=== PATIENT | female | born 1970 | race Caucasian/White ===

== ENCOUNTER → 2016-06-01 | Outpatient (CLI) | payer MEDICAID ==
[2016-02-05 11:57] VITALS: BP 120/60
--- NOTE | 2016-06-01 17:00 | RAD ---
Indication: Pain. Exam: Soft tissue neck. Technique: AP and lateral views were obtained of the soft tissues of the neck. Findings: The prevertebral soft tissues are normal. There is mild enlargement of the lingular tonsil s. The epiglottis and subglottic airway are unremarkable. The bones are intact. No foreign bodies ar e seen. Impression: Mild enlargement of the lingular tonsils otherwise, unremarkable. Reported By:
== END | disposition home or self-care (01) | DRG 552 ==
LOC: RAD 07:52
PROVIDERS: ATTEND Family Medicine
DX: M54.2 Cervicalgia (principal); J35.1 Hypertrophy of tonsils
CPT/HCPCS: 70360

== ENCOUNTER → 2016-12-13 | Outpatient (CLI) | payer MEDICAID ==
[2016-11-16 15:33] VITALS: BP 141/59
[2016-12-13 08:31] LABS: BASOPHILS % (AUTO) 0.3 % (0.2-1.0); EOSINOPHILS % (AUTO) 0.3 % (0.9-2.9); HEMATOCRIT 40.7 % (36.0-47.0); HEMOGLOBIN 14.4 g/dL (12.0-16.0); LYMPHOCYTES # (AUTO) 1.7 X10^3/uL (1.3-2.9); LYMPHOCYTES % (AUTO) 20.3 % (21.0-51.0); MEAN CORPUSCULAR HEMOGLOBIN 33.6 pg (27.0-34.0); MEAN CORPUSCULAR HGB CONC 35.4 g/dL (33.0-35.0); MEAN CORPUSCULAR VOLUME 94.9 fL (80.0-100.0); MEAN PLATELET VOLUME 7.8 fL (7.4-11.0); MONOCYTES # (AUTO) 0.6 x10^3/uL (0.3-0.8); MONOCYTES % (AUTO) 7.2 % (0.0-13.0); NEUTROPHILS % (AUTO) 71.9 % (42.0-75.0); PLATELET COUNT 296 X10^3/uL (150.0-450.0); RED BLOOD COUNT 4.28 X10^6/uL (3.5-5.4); RED CELL DISTRIBUTION WIDTH 13.4 % (11.6-16.5); WHITE BLOOD COUNT 8.4 X10^3/uL (3.6-10.0)
[2016-12-13 08:39] LABS: ALANINE AMINOTRANSFERASE 51 Units/L (12-78); ALBUMIN 3.6 g/dL (3.4-5.0); ALKALINE PHOSPHATASE 106 Units/L (46-116); ASPARTATE AMINO TRANSFERASE 41 Units/L (15-37); BLOOD UREA NITROGEN 12 mg/dL (7-18); CALCIUM 9.1 mg/dL (8.5-10.1); CHLORIDE 103 mmol/L (98-107); CHOLESTEROL 206 mg/dL (0-200); CREATININE 1.03 mg/dL (0.55-1.02); HDL CHOLESTEROL 69 mg/dL (40-60); SODIUM 137 mmol/L (136-145); TOTAL PROTEIN 8.1 g/dL (6.4-8.2); TRIGLYCERIDES 65 mg/dL (0-150); eGFR BLACK RACES > 60 (>60); eGFR NON BLACK RACES > 60 (>60)
[2016-12-15 06:44] LABS: DEHYDROEPIANDROSTERONE SULFATE 184 ug/dL (32-240)
== END ==
LOC: LAB 08:06
PROVIDERS: ATTEND Nurse Practitioner Family
DX: R06.02 Shortness of breath (principal); I10 Essential (primary) hypertension; E78.4 Other hyperlipidemia; R23.2 Flushing
CPT/HCPCS: 36415; 80053; 80061; 82627; 82671; 84144; 84270; 84402; 84403; 85025

== ENCOUNTER → 2016-12-27 | Outpatient (CLI) | payer MEDICAID ==
[2016-11-16 15:33] VITALS: BP 141/59
== END ==
LOC: RT 14:18
PROVIDERS: ATTEND Psychiatry & Neurology Neurology
DX: M54.12 Radiculopathy, cervical region (principal)
CPT/HCPCS: 95911

== ENCOUNTER 2017-05-23 11:26 | Emergency (ER) | payer MEDICAID ==
[2017-05-23 11:30] VITALS: BP 118/56; BMI 30.2
== END 2017-05-23 11:47 | disposition left against medical advice (07) ==
LOC: ER 11:45
DX: M25.562 Pain in left knee (principal)
CPT/HCPCS: 99281

== ENCOUNTER 2017-10-17 16:26 | Inpatient (IN) ==
[2017-10-17] MEDS ORDERED: TUSSIONEX PENNKINETIC SUSP PO PRN (17:10)
[2017-10-17] MEDS ORDERED: ULTRAM PO PRN (17:13)
[2017-10-17] MEDS ORDERED: MOTRIN TAB 600 MG PO PRN (17:13)
[2017-10-17 17:46] LABS: BASOPHILS # (AUTO) 0.1 X10^3/uL (0.0-0.1); BASOPHILS % (AUTO) 0.5 % (0.2-1.0); EOSINOPHILS # (AUTO) 0.1 x10^3/uL (0.0-0.2); EOSINOPHILS % (AUTO) 0.7 % (0.9-2.9); LYMPHOCYTES # (AUTO) 1.7 X10^3/uL (1.3-2.9); LYMPHOCYTES % (AUTO) 16.9 % (21.0-51.0); MEAN CORPUSCULAR HEMOGLOBIN 34.5 pg (27.0-34.0); MEAN CORPUSCULAR HGB CONC 36.1 g/dL (33.0-35.0); MEAN CORPUSCULAR VOLUME 95.7 fL (80.0-100.0); MEAN PLATELET VOLUME 8.3 fL (7.4-11.0); MONOCYTES # (AUTO) 0.9 x10^3/uL (0.3-0.8); MONOCYTES % (AUTO) 9.2 % (0.0-13.0); NEUTROPHILS # (AUTO) 7.3 x10^3/uL (2.2-4.8); NEUTROPHILS % (AUTO) 72.7 % (42.0-75.0); PLATELET COUNT 330 X10^3/uL (150.0-450.0); RED BLOOD COUNT 3.76 X10^6/uL (3.5-5.4)
[2017-10-17 17:47] VITALS: BMI 30.2
[2017-10-17 17:58] LABS: ALANINE AMINOTRANSFERASE 23 Units/L (12-78); ALBUMIN 3.4 g/dL (3.4-5.0); ALKALINE PHOSPHATASE 92 Units/L (46-116); ASPARTATE AMINO TRANSFERASE 18 Units/L (15-37); BLOOD UREA NITROGEN 6 mg/dL (7-18); CARBON DIOXIDE 26.2 mmol/L (21-32); CHLORIDE 101 mmol/L (98-107); COR NA(FOR HYPERGLY) 136 mmol/L (136-145); CREATININE 0.88 mg/dL (0.55-1.02); SODIUM 136 mmol/L (136-145); TOTAL PROTEIN 8.1 g/dL (6.4-8.2); eGFR NON BLACK RACES > 60 (>60)
--- NOTE | 2017-10-17 18:02 | DR.H&P ---
H&P - History & Physical for Day of: H&P Date: 10/17/17 - Chief Complaint Chief Complaint: SOB, CCC, WHEEZING - History of Present Illness History of Present Illness: 47 WF DIRECT ADMIT FROM DR GUTIÉRREZ OFFICE AFTER PRESENTING WITH CO SEVERE SOB, WHEEZING AND CHEST CONGESTION, LOW GRADE FEVERS AND N/V. PT STATES SHE HAS TAKEN NEB TREATMENTS WITHOUT IMPROVEMENT. DIFFUSE WHEEZES ON EXAM AND O2 SAT LOW 90'S IN OFFICE. PT HAS PMH OF COPD, OA, KURT, AND BIPOLAR DISORDER. PT ADMITTED FOR TREATMENT OF ACUTE RESP ILLNESS. - Past Medical History Past Medical History: Anxiety, Arthritis, COPD, Dyslipidemia, GERD, Hyperthyroidism - Past Surgical History Surgical History: Hysterectomy - Family History Family Medical History: Cancer, NM, Hypertension - Social History Does patient currently use any type of tobacco product: Yes Have you used tobacco products in the last 12 months: Yes Type of Tobacco Use: Cigarettes How many years tobacco product used: 38 Does any household member use tobacco: Yes Alcohol Use: None Drug Use: None - Medications Home Medications: aspirin Allergy (Verified 11/16/16 16:19) divalproex sodium [From Depakote] Allergy (Verified 11/16/16 16:19) fluoxetine [From Prozac] Allergy (Verified 11/16/16 16:19) ketorolac [From Toradol] Allergy (Verified 11/16/16 16:19) penicillin G Allergy (Verified 11/16/16 16:19) sumatriptan [From Imitrex] Allergy (Verified 11/16/16 16:19) ziprasidone [From Geodon] Allergy (Verified 11/16/16 16:19) CONTINUE taking the following medications albuterol sulfate [Proventil HFA] 1 puff INHALATION Q4-6H PRN 10/17/17 [History] alprazolam [Xanax] 2 mg PO QID 10/17/17 [History] budesonide-formoterol [Symbicort] 160 mg INHALATION BID 10/17/17 [History] carisoprodol 350 mg PO QID PRN 10/17/17 [History] estradiol 2 mg PO QDAY 10/17/17 [History] hydrocodone-acetaminophen [Bartelso] 1 tab PO Q6H PRN 10/17/17 [History] linaclotide [Linzess] 145 mcg PO QDAY 10/17/17 [History] lisinopril 5 mg PO QDAY 10/17/17 [History] omeprazole 20 mg PO QDAY 10/17/17 [History] quetiapine 300 mg PO BID 10/17/17 [History] ranitidine HCl [Zantac] 150 mg PO QDAY 10/17/17 [History] ropinirole 2 mg PO TID 10/17/17 [History] simvastatin 20 mg PO QHS 10/17/17 [History] - Review of Systems Constitutional: Fever, Chills, Sweats, Weakness Eyes: No Symptoms Reported ENT: No Symptoms Reported Respiratory: Cough, Shortness of Breath, SOB with Excertion, Sputum, Wheezing Cardiovascular: No Symptoms Reported Gastrointestinal: Nausea, Vomiting Genitourinary: No Symptoms Reported Musculoskeletal: No Symptoms Reported Skin: No Symptoms Reported Neurological: No Symptoms Reported - Physical Exam Vital Signs: Temperature 99.7 F Pulse Rate [Right Brachial] 110 Respiratory Rate 22 Blood Pressure [Right Arm] 160/81 Blood Pressure 118/56 O2 Sat by Pulse Oximetry 94 Oriented: Normal Ear: Normal Nose: Discharge Throat: Red, Dry Respiratory: Wheezes Throughout, RLL Diminished, LLL Diminished Cardiovascular: Tachycardia. negative: Edema : Normal Palpation: Normal Tenderness: Normal Skin: Normal Musculoskeletal: Back:Lumbar Psychiatric: Anxiety Mood Description: Anxious Affect: Anxious Speech Pattern: Clear, Appropriate - Assessment/Plan (1) SOB (shortness of breath) Status: Acute Plan: ADMIT, BLOOD AND SPUTUM CULTURES ON ADMISSION. PNEUMONIA PROTOCOL, CXR ON ADMISSION. IV ZITHROMAX, IV SOLU MEDROL, SUPPLEMENTAL O2, ABG. VERIFY HOME MEDS. RESP TOILETING, JET NEBS (2) COPD exacerbation Status: Acute (3) Pneumonia Status: Acute (4) KURT (generalized anxiety disorder) Status: Acute - Allergies Allergies/Adverse Reactions: Allergies Allergy/AdvReac Type Severity Reaction Status Date / Time aspirin Allergy Verified 11/16/16 16:19 divalproex sodium Allergy Verified 11/16/16 16:19 [From Depakote] fluoxetine [From Prozac] Allergy Verified 11/16/16 16:19 ketorolac [From Toradol] Allergy Verified 11/16/16 16:19 penicillin G Allergy Verified 11/16/16 16:19 sumatriptan [From Imitrex] Allergy Verified 11/16/16 16:19 ziprasidone [From Geodon] Allergy Verified 11/16/16 16:19
--- NOTE | 2017-10-17 18:08 | RAD ---
HISTORY: Cough and congestion, fever Study: Two-view chest Comparison: 11/09/2012 Findings: The trachea is midline. The cardiac silhouette is unremarkable. The lungs are clear. There is no acut e infiltrate, consolidation, or pleural effusion. The bony structures are grossly intact. IMPRESSION: 1. No acute cardiopulmonary process evident Reported By:
[2017-10-17] MEDS ORDERED: ZESTRIL TAB 5 MG PO SCH (18:15)
[2017-10-17] MEDS ORDERED: NS 1/2 1000 ML IV 1,000 ML IV ONE (19:10)
[2017-10-17] MEDS: ZITHROMAX INJ 500 MG VIAL 500 MG in NS 250 ML IV 250 ML IV SCH (19:13)
[2017-10-17] MEDS: XANAX PO SCH ×2 (19:13→23:00)
[2017-10-17] MEDS: ZESTRIL TAB 5 MG PO SCH (19:13)
[2017-10-17] MEDS: NS 1/2 1000 ML IV 1,000 ML IV SCH (19:13)
[2017-10-17] MEDS: SOLU-Medrol 125 MG VIAL IVP SCH ×2 (19:14→23:00)
[2017-10-17] MEDS: REQUIP PO SCH ×2 (19:15→23:00)
[2017-10-17] MEDS: NICOTINE PATCH TD SCH (19:52)
[2017-10-17] MEDS: SEROquel TAB 100 MG PO SCH (20:59)
[2017-10-17] MEDS: PULMICORT NEB TX 0.5 MG NEB SCH (21:49)
[2017-10-17] MEDS: DUONEB 0.5 MG/3 MG NEB SCH (21:49)
[2017-10-17] MEDS: ROBITUSSIN DM PO SCH (22:59)
[2017-10-17] MEDS: ZOCOR TAB 20 MG PO SCH (23:00)
[2017-10-18] MEDS: DUONEB 0.5 MG/3 MG NEB SCH ×6 (01:00→20:14)
[2017-10-18] MEDS: XANAX PO SCH ×3 (05:04→21:38)
[2017-10-18] MEDS: REQUIP PO SCH ×3 (05:04→21:36)
[2017-10-18] MEDS: SOLU-Medrol 125 MG VIAL IVP SCH ×3 (05:04→21:39)
[2017-10-18 05:09] LABS: BASOPHILS % (AUTO) 0.2 % (0.2-1.0); HEMATOCRIT 34.1 % (36.0-47.0); HEMOGLOBIN 12.2 g/dL (12.0-16.0); LYMPHOCYTES # (AUTO) 0.7 X10^3/uL (1.3-2.9); LYMPHOCYTES % (AUTO) 13.9 % (21.0-51.0); MEAN CORPUSCULAR HEMOGLOBIN 34.6 pg (27.0-34.0); MEAN CORPUSCULAR HGB CONC 35.7 g/dL (33.0-35.0); MEAN CORPUSCULAR VOLUME 96.9 fL (80.0-100.0); MEAN PLATELET VOLUME 8.5 fL (7.4-11.0); MONOCYTES # (AUTO) 0.1 x10^3/uL (0.3-0.8); MONOCYTES % (AUTO) 1.2 % (0.0-13.0); NEUTROPHILS # (AUTO) 4.1 x10^3/uL (2.2-4.8); NEUTROPHILS % (AUTO) 84.7 % (42.0-75.0); PLATELET COUNT 292 X10^3/uL (150.0-450.0); RED BLOOD COUNT 3.52 X10^6/uL (3.5-5.4); RED CELL DISTRIBUTION WIDTH 12.8 % (11.6-16.5); WHITE BLOOD COUNT 4.8 X10^3/uL (3.6-10.0)
[2017-10-18 05:25] LABS: ALANINE AMINOTRANSFERASE 23 Units/L (12-78); ALKALINE PHOSPHATASE 89 Units/L (46-116); ASPARTATE AMINO TRANSFERASE 17 Units/L (15-37); BLOOD UREA NITROGEN 7 mg/dL (7-18); CALCIUM 8.8 mg/dL (8.5-10.1); CHLORIDE 101 mmol/L (98-107); COR CA(FOR HYPOALB) 9.6 mg/dL (8.5-10.1); COR NA(FOR HYPERGLY) 137 mmol/L (136-145); CREATININE 0.86 mg/dL (0.55-1.02); SODIUM 135 mmol/L (136-145); TOTAL PROTEIN 7.7 g/dL (6.4-8.2); eGFR NON BLACK RACES > 60 (>60)
--- NOTE | 2017-10-18 06:58 | RAD ---
HISTORY: Cough, congestion, fever Study: Chest AP portable Comparison: 10/17/2017 Findings: The heart is within normal limits in size. The lc are normal. The lungs are well inflated. There llamas s been interval development since the prior examination of a right basilar infiltrate consistent with pneumonia. The remainder of the lung loera are clear. No pleural effusions are identified. The bony thorax is unremarkable. IMPRESSION: Interval development since the prior examination of a peripheral right basilar lung infiltrate most c onsistent with pneumonia. Reported By:
[2017-10-18] MEDS: ZANTAC PO SCH (08:49)
[2017-10-18] MEDS: ROBITUSSIN DM PO SCH ×4 (08:49→21:34)
[2017-10-18] MEDS: NICOTINE PATCH TD SCH (08:49)
[2017-10-18] MEDS: ZESTRIL TAB 5 MG PO SCH (08:49)
[2017-10-18] MEDS: PriLOSEC PO SCH (08:50)
[2017-10-18] MEDS: ZITHROMAX INJ 500 MG VIAL 500 MG in NS 250 ML IV 250 ML IV SCH (08:51)
[2017-10-18] MEDS: PULMICORT NEB TX 0.5 MG NEB SCH ×2 (08:53→20:14)
[2017-10-18] MEDS ORDERED: ESTRACE PO SCH (09:00)
[2017-10-18] MEDS ORDERED: PROTONIX TAB 40 MG PO SCH (09:00)
--- NOTE | 2017-10-18 09:11 | PCM.PROG ---
Progress Note - Progress Note for Day of Date of Exam: 10/18/17 - Subjective Subjective: 47 WF ADMITTED ON 10/17 WITH SOB, COPD EXACERBATION AND PNEUMONIA. PT IS CURRENTLY ON IV ATBX, IV SOLU MEDROL WITH IMPROVING INSPIRATORY WHEEZING THIS AM. LESS SOB AT REST REPORTED BY PT. CONTINUE JET NEBS, ENCOURAGE PULMONARY TOILETING, HYDRATION. - Past Medical Family Social History Past Med/Fam/Surg Hx: No changes since H&P Allergies: Allergies aspirin Allergy (Verified 11/16/16 16:19) divalproex sodium [From Depakote] Allergy (Verified 11/16/16 16:19) fluoxetine [From Prozac] Allergy (Verified 11/16/16 16:19) ketorolac [From Toradol] Allergy (Verified 11/16/16 16:19) penicillin G Allergy (Verified 11/16/16 16:19) sumatriptan [From Imitrex] Allergy (Verified 11/16/16 16:19) ziprasidone [From Geodon] Allergy (Verified 11/16/16 16:19) - Review of Systems ROS: No change since H&P - Vital Signs and I&O's Vital Signs: Temperature 96.6 F Pulse Rate [Right Brachial] 80 Pulse Rate 88 Respiratory Rate 20 Blood Pressure [Right Arm] 102/54 Blood Pressure 118/56 O2 Sat by Pulse Oximetry 97 Intake and Output: Intake & Output 10/15/17 10/16/17 10/17/17 10/18/17 11:59 11:59 11:59 11:59 Intake Total 1060 / 1060 Balance 1060 / 1060 - Physical Exam Oriented: Normal Eyes: Normal Ear: Normal Nose: Discharge Throat: Red, Dry Respiratory: Diminished, Rhonchi Cardiovascular: Tachycardia. negative: Edema : Normal Tenderness: Normal Skin: Normal Musculoskeletal: Back:Lumbar Psychiatric: Anxiety Mood Description: Anxious Affect: Anxious Speech Pattern: Clear, Appropriate - Laboratory and Diagnostics Result Diagrams: 10/18/17 04:50 10/18/17 04:50 Labs: 10/17/17 17:36 Sputum - Expectorated Sputum - Final Laboratory WBC 4.8 X10^3/uL (3.6-10.0) 10/18/17 04:50 RBC 3.52 X10^6/uL (3.5-5.4) 10/18/17 04:50 Hgb 12.2 g/dL (12.0-16.0) 10/18/17 04:50 Hct 34.1 % (36.0-47.0) L 10/18/17 04:50 MCV 96.9 fL (80.0-100.0) 10/18/17 04:50 MCH 34.6 pg (27.0-34.0) H 10/18/17 04:50 MCHC 35.7 g/dL (33.0-35.0) H 10/18/17 04:50 RDW 12.8 % (11.6-16.5) 10/18/17 04:50 Plt Count 292 X10^3/uL (150.0-450.0) 10/18/17 04:50 MPV 8.5 fL (7.4-11.0) 10/18/17 04:50 Neut % (Auto) 84.7 % (42.0-75.0) H 10/18/17 04:50 Lymph % (Auto) 13.9 % (21.0-51.0) L 10/18/17 04:50 [place] % (Auto) 1.2 % (0.0-13.0) 10/18/17 04:50 Eos % (Auto) 0.0 % (0.9-2.9) L 10/18/17 04:50 Baso % (Auto) 0.2 % (0.2-1.0) 10/18/17 04:50 Neut # (Auto) 4.1 x10^3/uL (2.2-4.8) 10/18/17 04:50 Lymph # (Auto) 0.7 X10^3/uL (1.3-2.9) L 10/18/17 04:50 [place] # (Auto) 0.1 x10^3/uL (0.3-0.8) L 10/18/17 04:50 Eos # (Auto) 0.0 x10^3/uL (0.0-0.2) 10/18/17 04:50 Baso # (Auto) 0.0 X10^3/uL (0.0-0.1) 10/18/17 04:50 Absolute Nucleated RBC 0.0 /100WBC 10/18/17 04:50 Sodium 135 mmol/L (136-145) L 10/18/17 04:50 Corrected Sodium 137 mmol/L (136-145) 10/18/17 04:50 Potassium 3.5 mmol/L (3.5-5.1) 10/18/17 04:50 Chloride 101 mmol/L (98-107) 10/18/17 04:50 Carbon Dioxide 25.0 mmol/L (21-32) 10/18/17 04:50 BUN 7 mg/dL (7-18) 10/18/17 04:50 Creatinine 0.86 mg/dL (0.55-1.02) 10/18/17 04:50 Est GFR (MDRD) Af Amer > 60 (>60) 10/18/17 04:50 Est GFR (MDRD) Non-Af > 60 (>60) 10/18/17 04:50 Glucose 170 mg/dL (65-99) H 10/18/17 04:50 Calcium 8.8 mg/dL (8.5-10.1) 10/18/17 04:50 Corrected Calcium 9.6 mg/dL (8.5-10.1) 10/18/17 04:50 Total Bilirubin 0.40 mg/dL (0.2-1.0) 10/18/17 04:50 AST 17 Units/L (15-37) 10/18/17 04:50 ALT 23 Units/L (12-78) 10/18/17 04:50 Alkaline Phosphatase 89 Units/L (46-116) 10/18/17 04:50 Total Protein 7.7 g/dL (6.4-8.2) 10/18/17 04:50 Albumin 3.0 g/dL (3.4-5.0) L 10/18/17 04:50 Globulin 4.7 g/dL (2.5-4.5) H 10/18/17 04:50 Albumin/Globulin Ratio 0.6 Ratio (1.1-2.1) L 10/18/17 04:50 - Plan (1) Pneumonia Status: Acute Plan: BLOOD AND SPUTUM CULTURES ON ADMISSION. PNEUMONIA PROTOCOL, CXR ON ADMISSION. IV ZITHROMAX, IV SOLU MEDROL, SUPPLEMENTAL O2, ABG. RESP TOILETING , JET NEBS (2) SOB (shortness of breath) Status: Acute Plan: ABG THIS AM. BLOOD AND SPUTUM CULTURES ON ADMISSION. PNEUMONIA PROTOCOL , CXR ON ADMISSION. IV ZITHROMAX, IV SOLU MEDROL, SUPPLEMENTAL O2. RESP TOILETING, JET NEBS (3) KURT (generalized anxiety disorder) Status: Acute (4) COPD exacerbation Status: Acute
[2017-10-18] MEDS: NORCO 10/325 TAB PO PRN ×2 (13:45→21:39)
[2017-10-18 14:18] LABS: ABG ALLEN TEST POS; ABG BASE EXCESS 1.5 mmol/L (-2.0-2.0); ABG HCO3 25.9 mmol/L (22-26)
[2017-10-18] MEDS: VISTARIL PO SCH ×2 (16:17→21:39)
[2017-10-18] MEDS ORDERED: NS 1/2 1000 ML IV 1,000 ML IV ONE (21:29)
[2017-10-18] MEDS: SEROquel TAB 100 MG PO SCH (21:35)
[2017-10-18] MEDS: ZOCOR TAB 20 MG PO SCH (21:36)
[2017-10-18] MEDS: NS 1/2 1000 ML IV 1,000 ML IV SCH ×2 (21:36→22:31)
[2017-10-18 22:52] LABS: BILIRUBIN,URINE NEGATIVE (NEGATIVE); BLOOD/HEMOGLOBIN,URINE 1+ (NEGATIVE); GLUCOSE, URINE 2+ (NEGATIVE); KETONES,URINE NEGATIVE (NEGATIVE); LEUKOCYTE ESTERASE ,URINE NEGATIVE (NEGATIVE); NITRITES,URINE NEGATIVE (NEGATIVE); PROTEIN,URINE NEGATIVE (NEGATIVE); UROBILINOGEN,URINE NORMAL (NORMAL)
[2017-10-18 22:56] LABS: APPEARANCE,URINE CLEAR (CLEAR); BACTERIA,URINE NEGATIVE /HPF (NEGATIVE); COLOR,URINE PALE YELLOW (YELLOW); RBC,URINE 0-2 /HPF (NONE SEEN); SQUAMOUS EPITHELIAL CELL,UR RARE /HPF (NEGATIVE)
[2017-10-19] MEDS: DUONEB 0.5 MG/3 MG NEB SCH ×3 (01:05→07:56)
[2017-10-19 05:25] LABS: BASOPHILS % (AUTO) 0.2 % (0.2-1.0); HEMATOCRIT 30.9 % (36.0-47.0); LYMPHOCYTES # (AUTO) 0.8 X10^3/uL (1.3-2.9); LYMPHOCYTES % (AUTO) 6.6 % (21.0-51.0); MEAN CORPUSCULAR HEMOGLOBIN 34.1 pg (27.0-34.0); MEAN CORPUSCULAR HGB CONC 35.6 g/dL (33.0-35.0); MEAN CORPUSCULAR VOLUME 95.8 fL (80.0-100.0); MEAN PLATELET VOLUME 8.3 fL (7.4-11.0); MONOCYTES # (AUTO) 0.3 x10^3/uL (0.3-0.8); MONOCYTES % (AUTO) 2.8 % (0.0-13.0); NEUTROPHILS % (AUTO) 90.4 % (42.0-75.0); PLATELET COUNT 293 X10^3/uL (150.0-450.0); RED BLOOD COUNT 3.23 X10^6/uL (3.5-5.4); RED CELL DISTRIBUTION WIDTH 13.1 % (11.6-16.5); WHITE BLOOD COUNT 12.2 X10^3/uL (3.6-10.0)
[2017-10-19 05:38] LABS: ALANINE AMINOTRANSFERASE 18 Units/L (12-78); ALBUMIN 2.7 g/dL (3.4-5.0); ALKALINE PHOSPHATASE 73 Units/L (46-116); ASPARTATE AMINO TRANSFERASE 12 Units/L (15-37); BLOOD UREA NITROGEN 9 mg/dL (7-18); CALCIUM 8.5 mg/dL (8.5-10.1); CARBON DIOXIDE 26.9 mmol/L (21-32); CHLORIDE 101 mmol/L (98-107); COR CA(FOR HYPOALB) 9.5 mg/dL (8.5-10.1); COR NA(FOR HYPERGLY) 136 mmol/L (136-145); CREATININE 0.74 mg/dL (0.55-1.02); SODIUM 135 mmol/L (136-145); eGFR NON BLACK RACES > 60 (>60)
[2017-10-19 05:55] LABS: BAND NEUTROPHILS % 3 % (0-10); PLATELET MORPHOLOGY COMMENT NORMAL (NORMAL)
[2017-10-19] MEDS: REQUIP PO SCH (06:32)
[2017-10-19] MEDS: SOLU-Medrol 125 MG VIAL IVP SCH (06:33)
[2017-10-19] MEDS: VISTARIL PO SCH (06:34)
[2017-10-19] MEDS: XANAX PO SCH (06:34)
--- NOTE | 2017-10-19 06:35 | RAD ---
HISTORY: Follow-up pneumonia Study: Chest AP portable Comparison: 10/18/2017 Findings: The heart is within normal limits in size. The lc are normal. The lungs are well inflated. Right ba silar lung infiltrate is not significantly changed from the prior examination. There is subsegmental atelectasis in the left costophrenic angle. The upper lung loera are clear. IMPRESSION: No significant change right basilar pneumonia Reported By:
[2017-10-19] MEDS: PULMICORT NEB TX 0.5 MG NEB SCH (07:56)
[2017-10-19] MEDS: ZESTRIL TAB 5 MG PO SCH (08:39)
[2017-10-19] MEDS: ZANTAC PO SCH (08:39)
[2017-10-19] MEDS: PriLOSEC PO SCH (08:39)
[2017-10-19] MEDS: NICOTINE PATCH TD SCH (08:39)
[2017-10-19] MEDS: NORCO 10/325 TAB PO PRN (08:43)
[2017-10-19 10:04] VITALS: BP 111/60
== END 2017-10-19 11:00 | disposition home or self-care (01) | DRG 178 ==
LOC: MED/SURG
PROVIDERS: ADMIT Internal Medicine; ATTEND Internal Medicine
DX: F31.89 Other bipolar disorder; F41.8 Other specified anxiety disorders; J44.1 Chronic obstructive pulmonary disease with (acute) exacerbation; J15.0 Pneumonia due to Klebsiella pneumoniae; E78.2 Mixed hyperlipidemia; R06.02 Shortness of breath; K21.9 Gastro-esophageal reflux disease without esophagitis
CPT/HCPCS: 36415; 36600; 71010; 71020; 71045; 71046; 80053; 81001; 82803; 85025; 87040; 87070; 87077; 87186; 87205; 94640; 94760; A4222; Q0177; G0378; J0456; J2930; J7050; J7620; J7626

== ENCOUNTER 2024-06-05 12:41 | Observation (INO) ==
[2024-06-05] MEDS: ANCEF VIAL 1 GRAM 1 G in NS 100 ML IV 100 ML IV SCH (13:50)
[2024-06-05] MEDS: NS 1,000 ML IV 1,000 ML with MAGNESIUM SULFATE 50% INJ VIAL 1 G, MVI INJ (ADULT) 10 ML IV SCH (13:50)
[2024-06-05] MEDS: NICOTINE PATCH TD SCH (14:01)
[2024-06-05] MEDS: HALDOL INJ IM NR (14:10)
[2024-06-05 15:02] LABS: BASOPHILS % (AUTO) 0.7 % (0.2-1.0); EOSINOPHILS % (AUTO) 0.3 % (0.9-2.9); HEMATOCRIT 36.6 % (36.0-47.0); LYMPHOCYTES # (AUTO) 2.1 X10^3/uL (1.3-2.9); LYMPHOCYTES % (AUTO) 33.1 % (21.0-51.0); MEAN CORPUSCULAR HEMOGLOBIN 34.4 pg (27.0-34.0); MEAN CORPUSCULAR HGB CONC 35.5 g/dL (33.0-35.0); MEAN PLATELET VOLUME 8.8 fL (7.4-11.0); MONOCYTES # (AUTO) 0.5 x10^3/uL (0.3-0.8); MONOCYTES % (AUTO) 8.1 % (0.0-13.0); NEUTROPHILS # (AUTO) 3.7 x10^3/uL (2.2-4.8); NEUTROPHILS % (AUTO) 57.8 % (42.0-75.0); PLATELET COUNT 301 X10^3/uL (150.0-450.0); RED BLOOD COUNT 3.77 X10^6/uL (3.5-5.4); RED CELL DISTRIBUTION WIDTH 12.8 % (11.6-16.5); WHITE BLOOD COUNT 6.4 X10^3/uL (3.6-10.0)
[2024-06-05] MEDS ORDERED: PROVENTIL NEB TX 0.083% 2.5MG/ 3ML NEB PRN (15:34)
[2024-06-05 15:48] LABS: ALANINE AMINOTRANSFERASE 18 Units/L (12-78); ALBUMIN 3.5 g/dL (3.4-5.0); ALKALINE PHOSPHATASE 64 Units/L (46-116); ASPARTATE AMINO TRANSFERASE 18 Units/L (15-37); BLOOD UREA NITROGEN 15 mg/dL (7-18); CALCIUM 9.2 mg/dL (8.5-10.1); CARBON DIOXIDE 27.8 mmol/L (21-32); CHLORIDE 102 mmol/L (98-107); COR NA(FOR HYPERGLY) 138 mmol/L (136-145); CREATININE 0.81 mg/dL (0.55-1.02); GLUCOSE 118 mg/dL (65-99); POTASSIUM 3.1 mmol/L (3.5-5.1); SODIUM 138 mmol/L (136-145); TOTAL PROTEIN 7.4 g/dL (6.4-8.2); eGFR NON BLACK RACES > 60 (>60)
[2024-06-05 17:22] VITALS: BMI 21.4
--- NOTE | 2024-06-05 17:46 | DR.H&P ---
H&P History & Physical for Day of: H&P Date: 06/05/24 Chief Complaint Chief Complaint: WEAKNESS, PALPITATIONS, REDNESS TO CUT ON LEFT ARM History of Present Illness History of Present Illness: PT IS 53 WF, DIRECT ADMIT FROM DR OLIVA OFFICE WITH CO SHE WAS SEEN IN ER ON WEEK AGO FOR MENTAL HEALTH EVALUATION AND PT WAS GIVEN PO MEDICATION FOR HALLUCINATIONS. PT REPORTS SHE IS STILL HEARING VOICES BUT DENIES SUICIDAL OR HOMOCIDAL THOUGHTS. PT HAS A CUT TO LEFT FA WITH LOCALIZED REDNESS PT REPORTS SHE DID CUT HERSELF LAST WEEK. PT HAS PMH OF BIPOLAR AND DRUG ABUSE. PT REPORTS NO ILLICIT DRUG USE SINCE HER ER VISIT. PT CO CANNOT EAT AND FEELS WEAK WITH PALPITATIONS. PT ADMITTED FOR TREATMENT AND EVALUATION OF ACUTE ILLNESS. 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 Family History Family Medical History: Hypertension Social History Does patient currently use any type of tobacco product: Yes How many years tobacco product used: 45 Alcohol Use: None Drug Use: Cocaine, Methamphetamine and Marijuana Medications Home Medications: Home Medications Medication Instructions Recorded Confirmed Type alprazolam 2 mg tablet (Xanax) 2 mg PO QID 10/17/17 05/31/24 History quetiapine 400 mg tablet 400 mg PO HS 11/14/23 05/31/24 History Allergies Allergies Allergy/AdvReac Type Severity Reaction Status Date / Time aspirin Allergy Verified 05/10/24 14:31 cyclobenzaprine Allergy Verified 05/10/24 14:31 [From Flexeril] divalproex sodium Allergy Verified 05/10/24 14:31 [From Depakote] fluoxetine [From Prozac] Allergy Verified 05/10/24 14:31 hydroxyzine [From Vistaril] Allergy Verified 05/10/24 14:31 ketorolac [From Toradol] Allergy Verified 05/10/24 14:31 penicillin G Allergy Verified 05/10/24 14:31 sumatriptan [From Imitrex] Allergy Verified 05/10/24 14:31 ziprasidone [From Geodon] Allergy Verified 05/10/24 14:31 Labs 06/05/24 14:40 06/05/24 14:40 Labs: Laboratory WBC 6.4 X10^3/uL (3.6-10.0) 06/05/24 14:40 RBC 3.77 X10^6/uL (3.5-5.4) 06/05/24 14:40 Hgb 13.0 g/dL (12.0-16.0) 06/05/24 14:40 Hct 36.6 % (36.0-47.0) 06/05/24 14:40 MCV 97.0 fL (80.0-100.0) 06/05/24 14:40 MCH 34.4 pg (27.0-34.0) H 06/05/24 14:40 MCHC 35.5 g/dL (33.0-35.0) H 06/05/24 14:40 RDW 12.8 % (11.6-16.5) 06/05/24 14:40 Plt Count 301 X10^3/uL (150.0-450.0) 06/05/24 14:40 MPV 8.8 fL (7.4-11.0) 06/05/24 14:40 Neut % (Auto) 57.8 % (42.0-75.0) 06/05/24 14:40 Lymph % (Auto) 33.1 % (21.0-51.0) 06/05/24 14:40 [place] % (Auto) 8.1 % (0.0-13.0) 06/05/24 14:40 Eos % (Auto) 0.3 % (0.9-2.9) L 06/05/24 14:40 Baso % (Auto) 0.7 % (0.2-1.0) 06/05/24 14:40 Neut # (Auto) 3.7 x10^3/uL (2.2-4.8) 06/05/24 14:40 Lymph # (Auto) 2.1 X10^3/uL (1.3-2.9) 06/05/24 14:40 [place] # (Auto) 0.5 x10^3/uL (0.3-0.8) 06/05/24 14:40 Eos # (Auto) 0.0 x10^3/uL (0.0-0.2) 06/05/24 14:40 Baso # (Auto) 0.0 X10^3/uL (0.0-0.1) 06/05/24 14:40 Absolute Nucleated RBC 0.0 /100WBC 06/05/24 14:40 Sodium 138 mmol/L (136-145) 06/05/24 14:40 Corrected Sodium 138 mmol/L (136-145) 06/05/24 14:40 Potassium 3.1 mmol/L (3.5-5.1) L 06/05/24 14:40 Chloride 102 mmol/L (98-107) 06/05/24 14:40 Carbon Dioxide 27.8 mmol/L (21-32) 06/05/24 14:40 BUN 15 mg/dL (7-18) 06/05/24 14:40 Creatinine 0.81 mg/dL (0.55-1.02) 06/05/24 14:40 Est GFR (MDRD) Af Amer > 60 (>60) 06/05/24 14:40 Est GFR (MDRD) Non-Af > 60 (>60) 06/05/24 14:40 Glucose 118 mg/dL (65-99) H 06/05/24 14:40 Calcium 9.2 mg/dL (8.5-10.1) 06/05/24 14:40 Corrected Calcium TNP 06/05/24 14:40 Magnesium 1.9 mg/dL (2.0-2.9) L 06/05/24 14:40 Total Bilirubin 0.70 mg/dL (0.2-1.0) 06/05/24 14:40 AST 18 Units/L (15-37) 06/05/24 14:40 ALT 18 Units/L (12-78) 06/05/24 14:40 Alkaline Phosphatase 64 Units/L (46-116) 06/05/24 14:40 Total Protein 7.4 g/dL (6.4-8.2) 06/05/24 14:40 Albumin 3.5 g/dL (3.4-5.0) 06/05/24 14:40 Globulin 3.9 g/dL (2.5-4.5) 06/05/24 14:40 Albumin/Globulin Ratio 0.9 Ratio (1.1-2.1) L 06/05/24 14:40 Review of Systems Constitutional: Chills, Sweats and Weakness Eyes: No Symptoms Reported ENT: No Symptoms Reported Respiratory: Cough Cardiovascular: Palpitations Gastrointestinal: Nausea Genitourinary: No Symptoms Reported Musculoskeletal: No Symptoms Reported Skin: Wound Neurological: Weakness; denies Numbness, Confusion or Seizures Physical Exam Vital Signs: Vital Signs Temperature 98.6 F Temperature 98.5 F Pulse Rate [Right Brachial] 73 Pulse Rate [Right Brachial] 76 Pulse Rate [Right Brachial] 89 Pulse Rate [Right Brachial] 82 Pulse Rate [Right Brachial] 83 Pulse Rate [Right Brachial] 81 Pulse Rate [Right Brachial] 88 Pulse Rate 71 Pulse Rate 74 Pulse Rate 73 Respiratory Rate 26 Respiratory Rate 20 Respiratory Rate 19 Respiratory Rate 20 Respiratory Rate 20 Respiratory Rate 20 Respiratory Rate 20 Respiratory Rate 20 Respiratory Rate 21 Respiratory Rate 23 Blood Pressure [Right Arm] 112/59 Blood Pressure [Right Arm] 104/58 Blood Pressure [Right Arm] 98/53 Blood Pressure [Right Arm] 113/56 Blood Pressure [Right Arm] 116/56 Blood Pressure [Right Arm] 134/66 Blood Pressure [Right Arm] 147/80 Blood Pressure 103/59 O2 Sat by Pulse Oximetry 95 O2 Sat by Pulse Oximetry 95 O2 Sat by Pulse Oximetry 95 O2 Sat by Pulse Oximetry 95 O2 Sat by Pulse Oximetry 95 O2 Sat by Pulse Oximetry 96 O2 Sat by Pulse Oximetry 99 O2 Sat by Pulse Oximetry 99 O2 Sat by Pulse Oximetry 98 O2 Sat by Pulse Oximetry 98 Oriented: Normal Eyes: Normal Nose: Normal Throat: Normal Respiratory: Wheezes Throughout Cardiovascular: Tachycardia Auscultation: Bowel Sounds: Normal Tenderness: Epigastric and Mild Skin: Red and Wound Musculoskeletal: Back:Lumbar Psychiatric: Anxiety and Depression Mood Description: Sad and Anxious Affect: Anxious Speech Pattern: Clear and Appropriate (PT REPORTS HEARING VOICES ) Assessment/Plan (1) Hallucination: Status: Acute Plan: ADMIT, IV HYDRATION HALDOL, ATBX FOR WOUND BLOOD AND URINE CULTURE ON ADMISSION PRN RESP THERAPY, NICOTINE PATCH (2) Generalized weakness: Status: Acute (3) KURT (generalized anxiety disorder): Status: Acute (4) Arm laceration with complication: Status: Acute
[2024-06-05] MEDS ORDERED: NS 250 ML IV 250 ML IV ONE (19:47)
[2024-06-05] MEDS: NS 250 ML IV 250 ML IV PRN (21:08)
[2024-06-05] MEDS: BACTROBAN TOPICAL OINT TOP SCH (21:09)
[2024-06-05] MEDS: KLOR-CON PO SCH (21:09)
[2024-06-05] MEDS: MAG-OX TAB PO SCH (21:09)
[2024-06-05 23:27] LABS: BILIRUBIN,URINE 1+ (NEGATIVE); BLOOD/HEMOGLOBIN,URINE 2+ (NEGATIVE); GLUCOSE, URINE NEGATIVE (NEGATIVE); KETONES,URINE 1+ (NEGATIVE); LEUKOCYTE ESTERASE ,URINE 3+ (NEGATIVE); NITRITES,URINE NEGATIVE (NEGATIVE); PROTEIN,URINE 2+ (NEGATIVE); UROBILINOGEN,URINE 2+ (NORMAL)
[2024-06-05 23:32] LABS: APPEARANCE,URINE SLIGHTLY HAZY (CLEAR); COLOR,URINE DARK YELLOW (YELLOW)
[2024-06-06 05:10] LABS: BASOPHILS % (AUTO) 0.8 % (0.2-1.0); EOSINOPHILS # (AUTO) 0.1 x10^3/uL (0.0-0.2); EOSINOPHILS % (AUTO) 1.2 % (0.9-2.9); HEMATOCRIT 35.8 % (36.0-47.0); HEMOGLOBIN 12.7 g/dL (12.0-16.0); LYMPHOCYTES # (AUTO) 2.3 X10^3/uL (1.3-2.9); MEAN CORPUSCULAR HEMOGLOBIN 34.4 pg (27.0-34.0); MEAN CORPUSCULAR HGB CONC 35.5 g/dL (33.0-35.0); MONOCYTES # (AUTO) 0.4 x10^3/uL (0.3-0.8); MONOCYTES % (AUTO) 8.3 % (0.0-13.0); NEUTROPHILS # (AUTO) 2.1 x10^3/uL (2.2-4.8); NEUTROPHILS % (AUTO) 43.7 % (42.0-75.0); PLATELET COUNT 279 X10^3/uL (150.0-450.0); RED BLOOD COUNT 3.69 X10^6/uL (3.5-5.4); RED CELL DISTRIBUTION WIDTH 12.7 % (11.6-16.5); WHITE BLOOD COUNT 4.9 X10^3/uL (3.6-10.0)
[2024-06-06 05:31] LABS: ALANINE AMINOTRANSFERASE 16 Units/L (12-78); ALBUMIN 3.3 g/dL (3.4-5.0); ALKALINE PHOSPHATASE 60 Units/L (46-116); ASPARTATE AMINO TRANSFERASE 18 Units/L (15-37); BLOOD UREA NITROGEN 14 mg/dL (7-18); CARBON DIOXIDE 28.3 mmol/L (21-32); CHLORIDE 104 mmol/L (98-107); COR CA(FOR HYPOALB) 9.6 mg/dL (8.5-10.1); CREATININE 0.71 mg/dL (0.55-1.02); GLUCOSE 92 mg/dL (65-99); MAGNESIUM 2.3 mg/dL (2.0-2.9); POTASSIUM 3.4 mmol/L (3.5-5.1); SODIUM 141 mmol/L (136-145); TOTAL PROTEIN 7.1 g/dL (6.4-8.2); eGFR NON BLACK RACES > 60 (>60)
[2024-06-06] MEDS ORDERED: BENADRYL INJ 50 MG VIAL IV PRN (08:30)
[2024-06-06] MEDS: PROTONIX INJ 40 MG VIAL IVP SCH (09:14)
[2024-06-06] MEDS: K-DUR TAB 20 MEQ PO SCH (09:16)
[2024-06-06] MEDS: ANCEF VIAL 1 GRAM IVP SCH (09:37)
[2024-06-06] MEDS: CONSULT PHARMACY - POTASSIUM & MAGNESIUM XX SCH ×2 (09:37)
[2024-06-06 12:07] VITALS: BP 100/50; PULSE 67; RESP 20; O2SAT 97
[2024-06-06 12:09] VITALS: TEMP 98.6
== END 2024-06-06 13:45 | disposition home or self-care (01) ==
LOC: ICU → INTOOBSV 12:43 → OBSVTOIN 12:43
PROVIDERS: ADMIT Internal Medicine; ATTEND Internal Medicine
DX: R53.1 Weakness; Z59.86 Financial insecurity; R44.0 Auditory hallucinations; F41.1 Generalized anxiety disorder; Y92.9 Unspecified place or not applicable; Z59.41 Food insecurity; W45.8XXA Other foreign body or object entering through skin, initial encounter; I10 Essential (primary) hypertension; R00.0 Tachycardia, unspecified; R06.2 Wheezing; Z72.0 Tobacco use; E87.6 Hypokalemia; L03.114 Cellulitis of left upper limb; F19.90 Other psychoactive substance use, unspecified, uncomplicated; K21.9 Gastro-esophageal reflux disease without esophagitis; J44.9 Chronic obstructive pulmonary disease, unspecified; W26.9XXA Contact with unspecified sharp object(s), initial encounter; B18.2 Chronic viral hepatitis C; F12.90 Cannabis use, unspecified, uncomplicated; E78.5 Hyperlipidemia, unspecified; R45.88 Nonsuicidal self-harm; E83.42 Hypomagnesemia; F15.90 Other stimulant use, unspecified, uncomplicated; F31.9 Bipolar disorder, unspecified; S51.812A Laceration without foreign body of left forearm, initial encounter